=== PATIENT | female | born 2000 | race Caucasian/White ===

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

== ENCOUNTER 2024-06-01 13:09 | Inpatient (IN) ==
--- NOTE | 2024-06-01 13:31 | History & Physical Report ---
Date of Service June 01, 2024 Assessment & Plan (1) Bloody diarrhea: Plan: Pt is a 24 yo female with PMH of ovarian dermoid cyst presenting at the urging of her PCP d/t intractable bloody diarrhea and weight loss. Intractable bloody diarrhea/unintentional weight loss - pt's history suspicious for IBD; intractable bloody diarrhea, elevated fecal calprotectin (1620), and significant unintentional weight loss - lab work on admission WNL; no anemia, ROSANNE, but with minimally elevated ESR - will hydrate with 1L IVF d/t elevated BUN/Cr ratio - if pt's presentation truly secondary to IBD, she would most likely benefit from steroids; however, hesitant to start w/o clear dx and concern for improvement of bowel mucosa prior to colonoscopy (making biopsies futile) - consult GI for consideration of colonoscopy and further eval Diet: regular VTE ppx: low risk- ambulation Code: full (2) Unintentional weight loss: Admission and Anticipated Discharge Date Admission Date: June 01, 2024 History of Present Illness Chief Complaint: bloody diarrhea, weight loss Primary Care Provider: Aubrie Hua DO Pt is a 24 yo female with PMH of ovarian dermoid cyst presenting at the urging of her PCP d/t intractable bloody diarrhea and weight loss. Pt notes her bloody diarrhea symptoms began around January. Prior to this, she did not have any GI symptoms that she can recall. She has been having consistent diarrhea since then in addition to a 20-25lb unintentional weight loss. Not all her stools are bloody, but when they are it is bright red blood both intermixed in her stool and in the toilet bowel itself. She has been undergoing a work up with her PCP. She lives currently in [place] where she was to have a colonoscopy done but when her mother visited her there and noticed how much weight she had lost, her mother brought her back here locally for further care. She was evaluated in the ER here at [place] 05/13 d/t bloody diarrhea and abdominal pain. Her CTAP at that time showed a pelvic mass. This pelvic mass was removed 05/22 at [facility] w/ Dr. Ramires and found to be a dermoid cyst (per mom). Per her surgeon, it was thought that removal of the cyst would relieve some of her bowel symptoms. However, she has noticed that her symptoms have actually worsened over the past week. She notes 6-10 bowel movements per day- all diarrhea. 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 She did have an outpatient appt with [facility] yesterday. They had recommended a course of flagyl to treat her diarrhea in case it was infectious/SIBO/IBS; however, she states she was instructed by her PCP not to take this so therefore she did not start it. Her outpatient GI provider was planning for a colonoscopy but was unsure of the timing d/t her recent ovarian removal. She denies feeling lightheaded, dizzy, or like she is going to pass out. She is most concerned with the chronicity of her symptoms in addition to the weight loss. Allergies Allergy/AdvReac Type Severity Reaction Status Date / Time No Known Allergies Allergy Verified 05/13/24 16:32 Home Medications Medication Instructions Recorded Confirmed Type No Known Home Medications 05/13/24 05/13/24 History Past Med/Surg History Problem List (Updated 06/01/24 @ 14:00 by Karin Bourgeois DO) Unintentional weight loss Bloody diarrhea Closed head injury (Acute) Facial contusion (Acute) Medical History (Updated 06/01/24 @ 14:00 by Karin Bourgeois DO) Anemia Elevated transaminase level Elevated LFTs Social History Smoking Status: Never smoker Hx Alcohol Use: Yes Alcohol type: wine Hx Substance Use: No Preferred Language: Irish Communication Ability: Effective Distribution Operation Supervisor Required: No Beliefs That Will Affect Care: None Current Living Situation: Alone Feels Safe at Home: Yes Safety Concerns: Feels Safe At This Time Assistive Devices: None Review of Systems Review of Systems: As per HPI Physical Exam Physical Exam: Constitutional: well appearing, no acute distress HEENT: normocephalic, no conjunctival injection CV: RRR, no murmur, no LE edema Respiratory: CTA bilaterally. No rhonchi, wheezes, or crackles. No increased work of breathing GI: soft, nondistended, nontender, + bowel sounds; recent surgical incisions noted and w/o signs of infection MSK: no gross deformities noted Skin: warm, dry, no rashes Neuro: alert, oriented, no FND noted Psych: mood and affect congruent Supervising Physician Co-Signing Physician Notes I personally examined the patient and verified all mccallum points of history and exam, discussed case, and agree with decision making with Dr Bourgeois several months of bloody diarrhea. PCP was trying to get appropriate workup done, but unfortunately continued to hit roadblocks. Eventually with patient starting to decline, she asked for direct admission to facilitate care. Vitals noted, in general she is awake and alert pleasant but fatigued no distress. HEENT nc at mmm breathing unlabored no accessory muscles good effort skin no rashes sl ashen no icterus bloody diarrheaextremely consistent with inflammatory bowel disease. Appears somewhat dehydrated from poor p.o. intake/weight loss/diarrheaIV fluids. Labs are fortunately reassuring (probably as much of function of being 24 and otherwise healthy as anything). Discussed with Joe for colonoscopy on Tuesday. Discussed with PCP who had discussed with the patient's surgeonthere is nothing surgical that would preclude a colonoscopythe surgeon is perfectly okay with proceeding with colonoscopy on Tuesday. otherwise as above Resident Activity Tracking Resident Involvement: Resident Care Provided Care Provided: Adult Hospital Medicine
[2024-06-01] MEDS ORDERED: MELATONIN 3 MG TAB PO PRN (13:46)
[2024-06-01] MEDS ORDERED: ONDANSETRON INJ 2 MG/ML 2 ML VIAL IV PRN (13:46)
[2024-06-01] MEDS ORDERED: ACETAMINOPHEN 325 MG TAB PO PRN (13:46)
[2024-06-01] MEDS ORDERED: POLYETHYLENE (MIRALAX) 17 GM PACK PO PRN (13:46)
--- NOTE | 2024-06-01 14:24 | Gastrointestinal Consultation ---
Date of Consultation June 01, 2024 Assessment & Plan (1) Bloody diarrhea: (2) Unintentional weight loss: Plan Patient is a 24 year old female who was a direct admit for further evaluation of bloody diarrhea and weight loss since 01/2024. she reports imaging suggestive of pancolitis. - patient will need eventual colonoscopy to further evaluate. Will discuss further with Dr. Marinelli on timing given that she had recent surgery to have pelvic mass removed.. Supervising Physician Co-Signing Physician Notes I saw and examined this patient with our nurse practitioner and agree with her assessment and plan. Several month history of bloody diarrhea and weight loss decreased appetite. No other extraintestinal manifestations or symptoms. Need to exclude inflammatory bowel disease as etiology for her symptoms. Recently had a dermatoid cyst removed from her pelvis. She has been cleared by her surgeon for us to proceed with colonoscopy early next week. History of Present Illness Reason for Consultation: bloody diarrhea, weight loss Requesting Physician: Karin Bourgeois DO Attending Physician: Raul Garrett DO History of Present Illness Patient is a 24 year old female who was a direct admit from her PCP, Dr. Hua, for a history of blood diarrhea since January 2024. She was evaluated for symptoms of abdominal pain last month and had CT imaging concerning for a pelvic mass as well as possible small bowel intussusception. She had surgery about a week ago for removal of the pelvic mass. she tells me that her bloody diarrhea seemed to get worse after surgery. she reports a 20-25lb weight loss over the past few months. She also reports having a CT scan done showing "pancolitis" but I do not have these records. she typically resides in [place], but mother brought her here for further evaluation. she was set up for colonoscopy in 6 weeks, but wanted to see about having this done sooner given worsening symptoms. no family history of IBD. pt has never had a colonoscopy. rest of GI ROS are unremarkable. 05/13/24 calprotectin 1620. other stool studies unremarkable. Allergies Allergy/AdvReac Type Severity Reaction Status Date / Time No Known Allergies Allergy Verified 05/13/24 16:32 Home Medications Medication Instructions Recorded Confirmed Type No Known Home Medications 05/13/24 05/13/24 History Patient History Medical History (Updated 06/01/24 @ 14:00 by Karin E. Smithbauer, DO) Anemia Elevated transaminase level Elevated LFTs Social History Smoking Status: Never smoker Hx Alcohol Use: Yes Alcohol type: wine Hx Substance Use: No Preferred Language: Albanian Communication Ability: Effective Coupler Required: No Beliefs That Will Affect Care: None Current Living Situation: Alone Feels Safe at Home: Yes Safety Concerns: Feels Safe At This Time Assistive Devices: None Review of Systems Review of Systems: All systems reviewed & are unremarkable except as noted in HPI & below Physical Exam Constitutional: WD/WN, vitals as above Respiratory: normal respiratory effort, lungs clear to auscultation Cardiovascular: Rate/Rhythm: regular rate and regular rhythm Gastrointestinal (Abdomen): several healing surgical sites in her abdomen. Psychiatric: Orientation: alert and oriented x 3 Affect: euthymic affect Results & Data Laboratory Results Laboratory Results - last 48 hr 06/01/24 14:49 WBC 6.21 RBC 5.23 Hgb 14.6 Hct 45.7 MCV 87.4 MCH 27.9 MCHC 31.9 L RDW Std Deviation 40.1 RDW Coeff of Joselo 12.7 Plt Count 344 MPV 11.2 ESR 39 H Sodium 141 Potassium 3.8 Chloride 101 Carbon Dioxide 31 Anion Gap 9 BUN 14 Creatinine 0.58 L Est Cr Clr Drug Dosing 140.7 eGFR 128.71 BUN/Creatinine Ratio 24.1 H Glucose 62 L Calcium 9.6 Total Bilirubin 0.3 AST 14 ALT 14 Alkaline Phosphatase 55 Total Protein 7.8 Albumin 4.6 Globulin 3.2 Albumin/Globulin Ratio 1.4 Coding Level of Care Code 76457 IN/OBS CONSULT LVL 4,60M Diagnoses Bloody diarrhea R19.7 Unintentional weight loss R63.4
[2024-06-01 15:26] LABS: Hematocrit (blood only) 45.7 % (37.0-47.0); Hemoglobin 14.6 g/dl (12.0-16.0); Mean Corpuscular Hemoglobin 27.9 pg (25.0-34.0); Mean Corpuscular Hgb Conc 31.9 g/dL (32.0-36.0); Mean Corpuscular Volume 87.4 fL (80.0-100.0); Mean Platelet Volume 11.2 fL (9.4-12.4); Platelet Count 344 K/uL (130-400); RDW Coefficient of Variation 12.7 % (11.5-14.5); RDW Standard Deviation 40.1 fL (36.4-46.3); Red Blood Count 5.23 M/uL (4.20-5.40); White Blood Count 6.21 K/ul (4.8-10.8)
[2024-06-01 15:37] LABS: Albumin Globulin Ratio 1.4 (0.9-2); Albumin Level 4.6 gm/dl (3.4-5.0); BUN Creatinine Ratio 24.1 (10-20); Bilirubin,Total 0.3 mg/dl (0.2-1.0); Calcium 9.6 mg/dl (8.6-10.3); Creatinine Clr Calc Pharmacy 140.7 ml/min; Globulin 3.2 gm/dl (2.5-4.0); Potassium 3.8 mmol/L (3.5-5.1); Total Protein 7.8 gm/dl (6.0-8.3)
[2024-06-01] MEDS: LACTATED RINGER'S 1,000 ML IV ONE (16:09)
--- NOTE | 2024-06-01 18:11 | Billing Data ---
Date of Service June 01, 2024 Coding Level of Care Code 06763 INT INP/OBS CARE
[2024-06-01] MEDS: LACTATED RINGER'S 1,000 ML IV SCH (18:23)
--- NOTE | 2024-06-02 07:34 | Hospitalist Progress Note ---
Date of Service June 02, 2024 Assessment & Plan (1) Bloody diarrhea: Plan: Pt is a 24 yo female with PMH of ovarian dermoid cyst presenting at the urging of her PCP d/t intractable bloody diarrhea and weight loss. Intractable bloody diarrhea/unintentional weight loss - pt's history suspicious for IBD; intractable bloody diarrhea, elevated fecal calprotectin (1620), and significant unintentional weight loss - lab work on admission WNL; no anemia, ROSANNE, but with minimally elevated ESR - IVF LR @80ml/hr - if pt's presentation truly secondary to IBD, she would most likely benefit from steroids; however, hesitant to start w/o clear dx and concern for improv ement of bowel mucosa prior to colonoscopy (making biopsies futile) - appreciate GI recommendations-> hopeful for colonoscopy early next week Diet: regular VTE ppx: low risk- ambulation Code: full (2) Unintentional weight loss: Admission and Anticipated Discharge Date Admission Date: June 01, 2024 Supervising Physician Co-Signing Physician Notes I personally examined the patient and verified all mccallum points of history and exam, discussed case, and agree with decision making with Dr Yo abdominal sx about the same, does feel overall a little better since getting IV fluids. Vitals noted, in general she is awake and alert pleasant but fatigued no distress. HEENT nc at mmm breathing unlabored no accessory muscles good effort skin no rashes less ashen no icterus bloody diarrheaextremely consistent with inflammatory bowel disease. was dehydrated from poor p.o. intake/weight loss/diarrheaIV fluids - have helped how she's feeling and overall appearance. Labs are fortunately reassuring (probably as much of function of being 24 and otherwise healthy as anything). Discussed with Joe for colonoscopy on Tuesday. Discussed with PCP who had discussed with the patient's surgeonthere is nothing surgical that would preclude a colonoscopythe surgeon is perfectly okay with proceeding with colonoscopy on Tuesday. anticipate bowel prep tomorrow otherwise as above Subjective Pt seen at bedside this morning. No events overnight and no complaints. Notes episode of non-bloody diarrhea this morning. Appetite is good. Review of Systems Review of Systems: As per above Physical Exam Physical Exam: Constitutional: well-appearing, no acute distress HEENT: NCAT, no conjunctival injection CV: regular rhythm, no murmur appreciated, extremities well-perfused Resp: CTABL, no wheezes/rales/rhonchi appreciated, no increased work of breathing GI: soft, nondistended, nontender MSK: no gross deformities appreciated Skin: warm, dry, no rash appreciated Neuro: alert, oriented, no focal neurologic deficit appreciated Results & Data Results & Data Vital Signs (Past 12 Hours) Vital Signs Temp Pulse Resp BP Pulse Ox O2 Del Method 06/02/24 07:17 36.7 C 58 L 15 92/54 L 96 Room Air 06/01/24 21:09 36.5 C 70 19 107/72 98 Room Air Resident Activity Tracking Resident Involvement: Resident Care Provided Care Provided: Adult Hospital Medicine
[2024-06-02 15:32] VITALS: RESP 16
--- NOTE | 2024-06-02 17:54 | Billing Data ---
Date of Service June 02, 2024 Coding Level of Care Code 38092 SUB INP/OBS CARE
--- NOTE | 2024-06-03 09:34 | Hospitalist Progress Note ---
Date of Service June 03, 2024 Assessment & Plan (1) Bloody diarrhea: Plan: Pt is a 24 yo female with PMH of ovarian dermoid cyst presenting at the urging of her PCP d/t intractable bloody diarrhea and weight loss. Intractable bloody diarrhea/unintentional weight loss - pt's history quite suspicious for IBD; intractable bloody diarrhea, elevated fecal calprotectin (1620), and significant unintentional weight loss - lab work on admission WNL; no anemia, ROSANNE, but with minimally elevated ESR - IVF LR @80ml/hr - if pt's presentation truly secondary to IBD, she would most likely benefit from steroids; however, hesitant to start w/o clear dx and concern for improv ement of bowel mucosa prior to colonoscopy (making biopsies futile) - appreciate GI recommendations-> hopeful for colonoscopy early next week; anticipate bowel prep today Hair loss -likely telogen response since the bloody diarrhea/etc started several months ago. can consider secondary w/u as outpt if needed Diet: regular VTE ppx: low risk- ambulation Code: full (2) Unintentional weight loss: Admission and Anticipated Discharge Date Admission Date: June 01, 2024 Supervising Physician Co-Signing Physician Notes bloody diarrheaextremely consistent with inflammatory bowel disease. was dehydrated from poor p.o. intake/weight loss/diarrheaIV fluids - have helped how she's feeling and overall appearance. Labs are fortunately reassuring (probably as much of function of being 24 and otherwise healthy as anything). Discussed with Crystallan for colonoscopy on Tuesday. Discussed with PCP who had discussed with the patient's surgeonthere is nothing surgical that would preclude a colonoscopythe surgeon is perfectly okay with proceeding with colonoscopy on Tuesday. anticipate scope in AM then plans after - discusssed generally anticipated management, although discussed that obviously this will be most specifically directed by GI otherwise as above Subjective feeling ok. notes hair falling out some. still with bloody diarrhea Review of Systems Review of Systems: All systems reviewed & are unremarkable except as noted in HPI & below Physical Exam Physical Exam: gen [id number] pleasant nad heent nc at mmm breathing unlabored no accessory muscles good effort skin no rashes no pallor or icterus neuro no focal deficits Results & Data Results & Data Vital Signs (Past 12 Hours) Vital Signs Temp Pulse Resp BP Pulse Ox O2 Del Method 06/03/24 07:43 98.2 F 71 16 95/54 L 96 Room Air 06/03/24 07:15 Room Air 06/02/24 21:45 98.2 F 69 16 117/77 95 Room Air PG Care Time/CCT Total # of Minutes Spent Total Time Spent with Patient: Total time spent is greater than 50% in coordination of care (as documented) at patient's floor/unit and/or counseling patient: Coding Level of Care Code 73294 SUB INP/OBS CARE 2/35MIN Diagnoses Bloody diarrhea R19.7 Unintentional weight loss R63.4
[2024-06-03] MEDS: LACTATED RINGER'S 1,000 ML IV SCH (10:10)
[2024-06-03] MEDS: bisacodyL 5 MG TABEC PO ONE ×2 (10:18→15:55)
--- NOTE | 2024-06-03 12:02 | Gastroenterology Progress Note ---
Date of Service June 03, 2024 Assessment & Plan (1) Bloody diarrhea: Plan: Suspect ulcerative colitis. The patient gets minimally elevated tissue transglutaminase antibodies IgA in 2020. Colonoscopy scheduled for tomorrow. If colonoscopy is negative to consider upper endoscopy with duodenal biopsies to rule out celiac disease as a cause of diarrhea and weight loss. (2) Unintentional weight loss: Admission and Anticipated Discharge Date Admission Date: June 01, 2024 Subjective Ongoing diarrhea, rectal bleeding. Patient is asking for colonoscopy. Colonoscopy scheduled for tomorrow, rule out ulcerative colitis. History of minimally elevated tissue transglutaminase IgA antibodies in 2020. If colonoscopy is negative to consider EGD with duodenal biopsies. Review of Systems Review of Systems: Constitutional: Denies weight loss, chills, fever, fatigue. Respiratory: Denies cough, denies shortness of breath. Cardiovascular: Denies chest pain and palpitations. Gastrointestinal: As per history of present illness Physical Exam Physical Exam: Constitutional: WD/WN, vitals as above Respiratory: normal respiratory effort, lungs clear to auscultation Cardiovascular: RRR, no murmur, no edema Gastrointestinal (Abdomen): normal bowel sounds, soft, nontender, no hepatosplenomegaly. Healing incision from recent surgery. Neurological: Oriented x 3, grossly no focal abnormalities, speech is intact. Results & Data Results & Data Vital Signs (Past 12 Hours) Vital Signs Temp Pulse Resp BP Pulse Ox O2 Del Method 06/03/24 07:43 36.8 C 71 16 95/54 L 96 Room Air 06/03/24 07:15 Room Air PG Care Time/CCT Total # of Minutes Spent Total Time Spent with Patient: Total time spent is greater than 50% in coordination of care (as documented) at patient's floor/unit and/or counseling patient: Coding Level of Care Code 97115 SUB INP/OBS CARE 2/35MIN Diagnoses Bloody diarrhea R19.7 Unintentional weight loss R63.4
[2024-06-03] MEDS ORDERED: LAVAGE SOLUTION 4000ML PO SCH (18:00)
[2024-06-03] MEDS: LAVAGE SOLUTION 4000ML PO SCH (18:30)
[2024-06-04 07:33] VITALS: TEMP 98.1
--- NOTE | 2024-06-04 07:35 | Hospitalist Progress Note ---
Date of Service June 04, 2024 Assessment & Plan (1) Bloody diarrhea: Plan: Pt is a 24 yo female with PMH of ovarian dermoid cyst presenting at the urging of her PCP d/t intractable bloody diarrhea and weight loss. Intractable bloody diarrhea/unintentional weight loss - pt's history suspicious for IBD; intractable bloody diarrhea, elevated fecal calprotectin (1620), and significant unintentional weight loss - lab work on admission WNL; no anemia, ROSANNE, but with minimally elevated ESR - IVF LR @80ml/hr - if pt's presentation truly secondary to IBD, she would most likely benefit from steroids; however, hesitant to start w/o clear dx and concern for improv ement of bowel mucosa prior to colonoscopy (making biopsies futile) - appreciate GI recommendations-> hopeful for colonoscopy early next week Diet: regular VTE ppx: low risk- ambulation Code: full (2) Unintentional weight loss: Admission and Anticipated Discharge Date Admission Date: June 01, 2024 Results & Data Results & Data Vital Signs (Past 12 Hours) Vital Signs Temp Pulse Resp BP Pulse Ox O2 Del Method 06/04/24 07:32 36.7 C 54 L 16 116/77 100 Room Air
--- NOTE | 2024-06-04 08:42 | Anesthesiology Consultation ---
Date of Service June 04, 2024 Assessment & Plan (1) Encounter for pre-operative examination: Chart Review Chart Review: Acceptable Risk for Surgery, Patient NOT seen in Pre Admission Testing and body recall instructor initiated Consults Requested none Proposed Anesthesia Anesthesia Type: MAC History Surgery Operation Date: 06/04/24 17:10 Proposed Procedures p Colonoscopy Dr. Erika James MD Height/Weight Height: 5 ft 9 in Weight: 60.1 kg Allergies Allergy/AdvReac Type Severity Reaction Status Date / Time No Known Allergies Allergy Verified 05/13/24 16:32 Medications Home Medications Medication Instructions Recorded Confirmed Last Taken No Known Home Medications 05/13/24 05/13/24 Unknown Active Medications Generic Name Dose Route Start Last Admin Trade Name Freq PRN Reason Stop Dose Admin Lactated Ringer's 1,000 mls @ 80 mls/hr 06/03/24 09:30 06/03/24 22:43 Lr IV 06/04/24 09:29 80 mls/hr .[id number] CHRISTINA Administration Past Medical History Medical History Anemia Elevated transaminase level Elevated LFTs Social History Smoking Status: Never smoker Hx Alcohol Use: Yes Alcohol type: wine alcohol intake frequency: holidays/special occasions only Hx Substance Use: No Physical Exam Vital Signs Last Vital Signs Temp 36.7 C 06/04/24 07:32 Pulse 54 L 06/04/24 07:32 Resp 16 06/04/24 07:32 BP 116/77 06/04/24 07:32 Pulse Ox 100 06/04/24 07:32 O2 Del Method Room Air 06/04/24 07:32 Testing Laboratory Results 06/01/24 14:49 06/01/24 14:49
--- NOTE | 2024-06-04 09:12 | History & Physical Bridge Note ---
Date of Service June 04, 2024 History & Physical Bridge Note I have examined the patient, reviewed the History & Physical and in the interval since the performance of the History & Physical I have noted the following changes of clinical significance: no changes noted. H/H 14.6/45.7. Patient denies any GI bleeding during her prep. She completed her bowel prep without issue. She notes clear liquid stools. Patient has a history of an abnormal TTG in 2020 with a normal EGD at that time. Keep NPO and proceed with colonoscopy and potential EGD.
--- NOTE | 2024-06-04 09:26 | Gastroenterology Progress Note ---
Date of Service June 04, 2024 Assessment & Plan (1) Bloody diarrhea: (2) Unintentional weight loss: Plan: For colonoscopy with biopsies to rule out ulcerative colitis. If colonoscopy is normal would also proceed with an upper endoscopy and duodenal biopsies to rule out celiac disease. Admission and Anticipated Discharge Date Admission Date: June 01, 2024 Subjective Weight loss, chronic diarrhea, hematochezia. Suspected ulcerative colitis. History of minimally elevated tissue transglutaminase antibodies 4 years ago. Celiac disease is also suspected. Review of Systems Review of Systems: Constitutional: Denies weight loss, chills, fever, fatigue. Respiratory: Denies cough, denies shortness of breath. Cardiovascular: Denies chest pain and palpitations. Gastrointestinal: Denies nausea, vomiting. Physical Exam Physical Exam: Constitutional: WD/WN, vitals as above Respiratory: normal respiratory effort, lungs clear to auscultation Cardiovascular: RRR, no murmur, no edema Gastrointestinal (Abdomen): normal bowel sounds, soft, nontender, no hepatosplenomegaly. Neurological: Oriented x 3, grossly no focal abnormalities, speech is intact. Results & Data Results & Data Vital Signs (Past 12 Hours) Vital Signs Temp Pulse Resp BP Pulse Ox O2 Del Method 06/04/24 09:04 36.7 C 69 16 119/90 98 Room Air 06/04/24 07:32 36.7 C 54 L 16 116/77 100 Room Air PG Care Time/CCT Total # of Minutes Spent Total Time Spent with Patient: Total time spent is greater than 50% in coordination of care (as documented) at patient's floor/unit and/or counseling patient: Coding Level of Care Code None Diagnoses Bloody diarrhea R19.7 Unintentional weight loss R63.4
--- NOTE | 2024-06-04 10:29 | GI REPORT ---
[facility] Patient: JOSTIN PRESTON : 2000 Sex at : Female Age: 24 Years Procedure: Colonoscopy Date: 06/04/2024 Attending Physician: Steve James MD Referring MD: Karin Bourgeois Do; Jared Draper; Aubrie Hua Indications: - Chronic diarrhea - Bloody diarrhea, weight Medications: - Monitored Anesthesia Care Complications: - No immediate complications. Estimated Blood Loss: - Estimated blood loss: None. Procedure: - The pediatric colonoscope was introduced through the anus and advanced to the terminal ileum, with identification of the appendiceal orifice and ileocecal valve. - The colonoscopy was performed with ease. - The patient tolerated the procedure well. - The quality of the bowel preparation was good. Findings: - The perianal examination was normal. - A diffuse and scattered area of mildly erythematous mucosa was found in the entire colon. Biopsies were taken with a cold forceps for histology. Biopsies were obtained in the cecum, in the ascending colon, in the transverse colon, in the descending colon and in the mid sigmoid colon with cold forceps for ulcerative colitis surveillance and histology. Findings were consistent with mild ulcerative colitis, Santos score 1 - The terminal ileum appeared normal. Impression: - Erythematous mucosa in the entire examined colon. Biopsied. - Biopsies were obtained in the cecum, in the ascending colon, in the transverse colon, in the descending colon and in the mid sigmoid colon. - Findings were consistent with mild ulcerative colitis, Santos score 1 - The examined portion of the ileum was normal. Recommendation: - Await pathology results. - Return to GI office in 3 weeks. - Begin Lialda 3.6 g/day. Procedure Code(s): - 21824, Colonoscopy, flexible; with biopsy, single or multiple Diagnosis Code(s): - K52.9, Noninfective gastroenteritis and colitis, unspecified - K63.89, Other specified diseases of intestine CPT(R) - 2023 copyright [employer]. All Rights Reserved. The CPT codes, CCI edits and ICD codes generated are intended as suggestions and were generated based on input data. These codes are preliminary and upon procurement professional review may be revised to meet current compliance and payer requirements. The provider is responsible for the final determination of appropriate codes, and modifiers. Steve James M.D. , This document has been electronically signed. Note Initiated:06/04/2024 Note Completed:06/04/2024 10:28 AM \\[email or web address]\Data\Provation\Results\[email or web address]\[id number]
[2024-06-04 11:05] VITALS: BP 109/73; PULSE 61; O2SAT 100
--- NOTE | 2024-06-04 11:19 | Discharge Summary ---
Date of Service June 04, 2024 Admission HPI Per Admitting Provider Pt is a 24 yo female with PMH of ovarian dermoid cyst presenting at the urging of her PCP d/t intractable bloody diarrhea and weight loss. Pt notes her bloody diarrhea symptoms began around January. Prior to this, she did not have any GI symptoms that she can recall. She has been having consistent diarrhea since then in addition to a 20-25lb unintentional weight loss. Not all her stools are bloody, but when they are it is bright red blood both intermixed in her stool and in the toilet bowel itself. She has been undergoing a work up with her PCP. She lives currently in [place] where she was to have a colonoscopy done but when her mother visited her there and noticed how much weight she had lost, her mother brought her back here locally for further care. She was evaluated in the ER here at [place] 05/13 d/t bloody diarrhea and abdominal pain. Her CTAP at that time showed a pelvic mass. This pelvic mass was removed 05/22 at [facility] w/ Dr. Ramires and found to be a dermoid cyst (per mom). Per her surgeon, it was abril tavera that removal of the cyst would relieve some of her bowel symptoms. However, she has noticed that her symptoms have actually worsened over the past week. She notes 6-10 bowel movements per day- all diarrhea. She does "not remember the last time I had a normal bowel movement." She notes occasional cramping with the bowel movements. She did have an outpatient appt with [facility] yesterday. They had recommended a course of flagyl to treat her diarrhea in case it was infectious/SIBO/IBS; however, she states she was instructed by her PCP not to take this so therefore she did not start it. Her outpatient GI provider was planning for a colonoscopy but was unsure of the timing d/t her recent ovarian removal. She denies feeling lightheaded, dizzy, or like she is going to pass out. She is most concerned with the chronicity of her symptoms in addition to the weight loss. Admission Exam Per Admitting Provider Constitutional: well appearing, no acute distress HEENT: normocephalic, no conjunctival injection CV: RRR, no murmur, no LE edema Respiratory: CTA bilaterally. No rhonchi, wheezes, or crackles. No increased w ork of breathing GI: soft, nondistended, nontender, + bowel sounds; recent surgical incisions noted and w/o signs of infection MSK: no gross deformities noted Skin: warm, dry, no rashes Neuro: alert, oriented, no FND noted Psych: mood and affect congruent Principal Diagnosis ulcerative colitis Discharge Exam Respiratory normal respiratory effort, lungs clear to auscultation Cardiovascular RRR, no murmur, no edema Gastrointestinal (Abdomen) Inspection/Auscultation: normal bowel sounds and + abdominal surgical incision (well healing) tenderness to palpation LLQ Discharge Data Allergies Allergy/AdvReac Type Severity Reaction Status Date / Time No Known Allergies Allergy Verified 05/13/24 16:32 Consultations 06/01/24 13:46 Consult Gastroenterology Routine Procedures Performed Operation Date: 06/04/24 18:25 <No data on this case meets the specified criteria> Ordered Studies Laboratory Results WBC 6.21 K/ul (4.8-10.8) 06/01/24 14:49 RBC 5.23 M/uL (4.20-5.40) 06/01/24 14:49 Hgb 14.6 g/dl (12.0-16.0) 06/01/24 14:49 Hct 45.7 % (37.0-47.0) 06/01/24 14:49 MCV 87.4 fL (80.0-100.0) 06/01/24 14:49 MCH 27.9 pg (25.0-34.0) 06/01/24 14:49 MCHC 31.9 g/dL (32.0-36.0) L 06/01/24 14:49 RDW Std Deviation 40.1 fL (36.4-46.3) 06/01/24 14:49 RDW Coeff of Joselo 12.7 % (11.5-14.5) 06/01/24 14:49 Plt Count 344 K/uL (130-400) 06/01/24 14:49 MPV 11.2 fL (9.4-12.4) 06/01/24 14:49 ESR 39 mm/hr (0-20) H 06/01/24 14:49 Sodium 141 mmol/L (136-145) 06/01/24 14:49 Potassium 3.8 mmol/L (3.5-5.1) 06/01/24 14:49 Chloride 101 mmol/L (98-107) 06/01/24 14:49 Carbon Dioxide 31 mmol/L (21-32) 06/01/24 14:49 Anion Gap 9 (3-11) 06/01/24 14:49 BUN 14 mg/dl (6-23) 06/01/24 14:49 Creatinine 0.58 mg/dl (0.6-1.2) L 06/01/24 14:49 Est Cr Clr Drug Dosing 140.7 ml/min 06/01/24 14:49 eGFR 128.71 06/01/24 14:49 BUN/Creatinine Ratio 24.1 (10-20) H 06/01/24 14:49 Glucose 62 mg/dl (70-99(Fasting)) L 06/01/24 14:49 Calcium 9.6 mg/dl (8.6-10.3) 06/01/24 14:49 Total Bilirubin 0.3 mg/dl (0.2-1.0) 06/01/24 14:49 AST 14 U/L (13-39) 06/01/24 14:49 ALT 14 U/L (7-52) 06/01/24 14:49 Alkaline Phosphatase 55 U/L (34-104) 06/01/24 14:49 Total Protein 7.8 gm/dl (6.0-8.3) 06/01/24 14:49 Albumin 4.6 gm/dl (3.4-5.0) 06/01/24 14:49 Globulin 3.2 gm/dl (2.5-4.0) 06/01/24 14:49 Albumin/Globulin Ratio 1.4 (0.9-2) 06/01/24 14:49 POC Ur Test NEG (NEG) 06/04/24 09:03 Hospital Course (1) Ulcerative colitis: (2) Bloody diarrhea: (3) Unintentional weight loss: Plan 24 yr F presenting for evaluation for IBD #Ulcerative Colitis - presented with bloody diarrhea and unintentional weight loss since Jan 2024 - colonoscopy findings consistent with ulcerative colitis - follow up on final path report as outpatient - hemoglobin stable (14.6) - started on Lialda 4.8g daily - follow up with GI in 3 weeks, and PCP next week Total Time Total Time Spent Total Time Spent (In Minutes): see attending attestation Discharge Plan Discharge Items Patient Disposition: Home - Self-Care Reason For Visit: INTRACTABLE DIARRHEA, WEIGHT LOSS Discharge Diagnosis: ulcerative colitis Activity: Resume your previous activity Non-emergency contact: Primary Care Provider and Website/Blog Editor Call non-emergency contact if: you have any medication questions, your symptoms worsen and you have a fever Follow-up/Referrals: Aubrie Hua DO [Primary Care Provider] - 06/14/24 9:05 am Diet: Regular and Low Fiber Addtl Attending Provider Instructions: You were admitted for work up of chronic bloody diarrhea with associated weight loss. Your lab work was suggestive of likely inflammatory bowel disease. Col onoscopy confirmed presence of mild ulcerative colitis, which would explain your recent symptoms. Upon discharge, you are being started on a medication called Mesalamine (Lialda) - please take 4 tablets (4.8 grams) daily. Please follow up in the office with gastroenterology in about 3 weeks for continued medication management. The following are some recommendations regarding diet. Please see the attached educational printout for additional information about your diagnosis. Your diet did not cause your condition, but it can affect it. Unfortunately, the re is no one diet that works for everyone, so you have to experiment. Below are some recommendations, but what works for you may be different. Keep a food log to figure out what you are sensitive to. Eat more slowly. Eat smaller amounts at a time, but more often. Remember, you can always eat more, but can't eat less once you've eaten too much. High-fiber foods are complicated. While they may help constipation, they can make bloating, cramping, gas, and diarrhea worse. Eat less sugar. Try cutting out dairy products if you feel you are sensitive to lactose. Try cutting out foods that are high in fat and fatty meats. You can control bloating and passing excess gas. Be careful with "gassy" vegetables and fruits like beans, cabbage, broccoli, and cauliflower. Be careful of carbonated drinks and fruit juices. They can make bloating and diarrhea worse. Caffeine, alcohol, and stimulants may make symptoms worse. Pending Studies at Discharge: Yes Studies:: f/u on path results from colonoscopy Stand-Alone Forms: My [facility] [place], Smoking Cessation Medications and DC Order Prescriptions: New mesalamine [Lialda] 1.2 gram tablet,delayed release (DR/EC) 4.8 g PO DAILY 30 Days Qty: 120 0RF Discontinued mesalamine [Lialda] 1.2 gram tablet,delayed release (DR/EC) 4.8 g PO QDAY 30 Days Qty: 120 11RF Discharge Orders: Discharge Order (Routine); Ordered 06/04/24 Ordered By: Kavin Thompson/Other Patient Handouts: Low-Fiber Diet, ED Ulcerative Colitis Admission Data Admit Date/Time: 06/01/24 13:25 Attending Provider: Jared Draper Admit Provider: Raul Garrett Primary Care Provider: Aubrie Hua Other Providers: Tre Marinelli I Other Interventions: Discharge Summary Assessment (RN) Last Done: 06/04/24 13:08 Supervising Physician Co-Signing Physician Notes Attending attestation Pt seen and examined in concert with St. Dr. Hattie Spann. In agreement with the documented findings as noted in the resident documentation with any exceptions or additions as noted here. Ongoing mild abdominal cramping diffusely and loose bowel movements with blood but feeling much better with a more definitive diagnosis. On examination, S1/S2 nl RRR no MCG. CTAB. Abd NT/ND BS+ve Ulcerative colitis - colonoscopy as noted, GI consult appreciated - mesalamine therapy with close follow up on discharge. Looking to establish/coordinate care with GI in [place]. Else see resident documentation as noted. Total attending physician time spent with this patient's care on the day of discharge: 35 minutes. Resident Activity Tracking Resident Involvement: Resident Care Provided Care Provided: Adult Hospital Medicine
[2024-06-04] MEDS: PROPOFOL IV EMULSION 10 MG/ML 20 ML VIAL IV ONE ×2 (11:28)
[2024-06-04] MEDS: SODIUM CHLORIDE 0.9% 500 ML IV SCH (11:28)
[2024-06-04] MEDS: LIDOCAINE 2% 2 ML VIAL/AMP(20MG/ML) INFIL ONE (11:28)
[2024-06-04] MEDS: fentaNYL citrate PF 100 MCG/2 ML VIAL ONE (11:28)
[2024-06-04] MEDS ORDERED: MESALAMINE 800 MG TABCR PO SCH (14:00)
--- NOTE | 2024-06-04 16:14 | Anesthesiology Progress Note ---
Date of Service June 04, 2024 Anesthesia Post Procedure Vital Signs Vital Signs: Temp Pulse Resp BP Pulse Ox O2 Del Method 06/04/24 11:02 36.7 C 61 16 109/73 100 Room Air 06/04/24 10:54 64 16 102/78 98 Room Air 06/04/24 10:39 58 L 16 117/68 98 Room Air 06/04/24 10:24 69 16 118/92 98 Room Air 06/04/24 09:04 36.7 C 69 16 119/90 98 Room Air 06/04/24 07:32 36.7 C 54 L 16 116/77 100 Room Air 06/03/24 18:55 37.1 C 66 16 115/78 96 Room Air Pain Intensity Abdomen: Pain Intensity: 3 Transfer of Care Handoff Completed per policy Notes Mental Status: alert / awake / arousable Patient Amnestic to Procedure: Yes Nausea / Vomiting: adequately controlled Pain: adequately controlled Airway Patency, RR, SpO2: stable & adequate BP & HR: stable & adequate Hydration State: stable & adequate Anesthetic Complications: no major complications apparent
== END 2024-06-04 13:45 | disposition home or self-care (01) | DRG 387 ==
LOC: 3E 13:25 → SUATTDRO 13:25
DX: L65.9 Nonscarring hair loss, unspecified; Z87.42 Personal history of other diseases of the female genital tract; R63.4 Abnormal weight loss; K51.911 Ulcerative colitis, unspecified with rectal bleeding; Z98.890 Other specified postprocedural states